=== PATIENT | female | born 1945 | race Caucasian/White ===

== ENCOUNTER 2021-08-02 03:20 | Observation (INO) | payer OTHER ==
[~2021-08-02] VITALS: Ht 162.6 cm; Wt 49.2 kg
[2021-08-02] VITALS (10 sets, daily range): BP systolic 104–147; BP diastolic 51–70
[2021-08-02 04:26] LABS: HEMATOCRIT 38.3 % (37.0-47.0); HEMOGLOBIN 11.8 g/dl (12.0-16.0); IMMATURE GRANULOCYTES 0.4 % (0.0-5.0); MEAN CELL VOLUME 103.2 fL CALC (80.0-100.0); MEAN CORPUSCULAR HGB 31.8 pG CALC (26.0-32.0); MEAN CORPUSCULAR HGB CONC 30.8 g/dL CAL (32.0-36.0); NEUT# 14.33 thou/uL (2.00-7.15); RED BLOOD COUNT 3.71 mill/uL (4.20-5.60); RED CELL DISTRI WIDTH 12.8 % (11.5-15.5)
[2021-08-02 04:29] LABS: ALBUMIN 4.3 g/dL (3.2-5.0); ALKALINE PHOSPHATASE 79 u/l (38-126); AMYLASE 49 u/l (30-110); ANION GAP 12 (6-22 (CALC)); BILIRUBIN, TOTAL 0.5 mg/dL (0.0-1.4); BUN 15 mg/dL (8-23); BUN/CREATININE RATIO 10 (12-20 (CALC)); CARBON DIOXIDE 26 mmol/l (22-30); CHLORIDE 101 mmol/l (95-108); CREATININE 1.5 mg/dL (0.5-1.0); GFR 34 ML/MIN (>=60 (CALC)); GFR FOR AFR.AMER. 41 ML/MIN (>=60 (CALC)); LIPASE 166 u/l (23-300); SGOT/AST 22 u/l (9-36); SODIUM 135 mmol/l (137-146)
[2021-08-02 04:41] LABS: MYOGLOBIN 80 ng/mL (0 - 62)
[2021-08-02 05:44] LABS: URINE BILIRUBIN - DIPSTICK NEGATIVE (NEGATIVE); URINE BLOOD DIPSTICK MODERATE (NEGATIVE); URINE COLOR YELLOW; URINE GLUCOSE - DIPSTICK NEGATIVE (NEGATIVE); URINE KETONE TRACE mg/dL (NEGATIVE); URINE PH 5.5 (4.5-8.0); URINE PROTEIN - DIPSTICK 100 mg/dL (NEG-TRACE); URINE UROBILINOGEN - DIPSTICK 0.2 E.U./dL (0.2)
[2021-08-02 05:53] LABS: URINE NITRITE - DIPSTICK NEGATIVE (Negative)
[2021-08-02 05:54] LABS: URINE EPITHELIAL CELLS MODERATE EPI/hpf (0-FEW); URINE LEUK ESTERASE NEGATIVE (NEGATIVE)
[2021-08-02 05:55] LABS: URINE BACTERIA MODERATE hpf
[2021-08-02] MEDS ORDERED: GLICLAZIDE (07:14)
[2021-08-02] MEDS ORDERED: AMLODIPINE BESYL5 MG PO (07:15)
[2021-08-02] MEDS ORDERED: RAMIPRIL2.5 MG PO (07:16)
[2021-08-02] MEDS ORDERED: PRILOSEC20 MG/CAP PO (07:16)
[2021-08-02] MEDS ORDERED: ROSUVASTATIN CA10 MG PO (07:17)
[2021-08-02] MEDS ORDERED: SYNTHROID25 MCG PO (07:17)
[2021-08-02] MEDS ORDERED: BISOPROL FUM5 MG PO (07:17)
[2021-08-02] MEDS ORDERED: ALTACE10 MG PO (13:05)
[2021-08-02] MEDS ORDERED: GLYCOPYRROLATE (13:08)
[2021-08-03 04:39] VITALS: BP 102/27
[2021-08-03 05:44] LABS: HEMATOCRIT 33.8 % (37.0-47.0); HEMOGLOBIN 10.2 g/dl (12.0-16.0); MEAN CORPUSCULAR HGB 32.3 pG CALC (26.0-32.0); MEAN CORPUSCULAR HGB CONC 30.2 g/dL CAL (32.0-36.0); RED BLOOD COUNT 3.16 mill/uL (4.20-5.60)
[2021-08-03 05:53] LABS: CREATININE 1.3 mg/dL (0.5-1.0); MAGNESIUM 1.6 mg/dL (1.6-2.3)
[2021-08-03 05:55] LABS: POTASSIUM 4.3 mmol/l (3.5-5.1)
[2021-08-03 07:20] VITALS: BP 99/45
[2021-08-03 09:16] VITALS: BP 102/42
[2021-08-03 11:40] VITALS: BP 107/48
[2021-08-04 00:24] VITALS: BP 117/43
[2021-08-04 05:16] LABS: HEMATOCRIT 31.6 % (37.0-47.0); HEMOGLOBIN 9.5 g/dl (12.0-16.0); IMMATURE GRANULOCYTES 1.1 % (0.0-5.0); MEAN CELL VOLUME 106.8 fL CALC (80.0-100.0); MEAN CORPUSCULAR HGB 32.1 pG CALC (26.0-32.0); MEAN CORPUSCULAR HGB CONC 30.1 g/dL CAL (32.0-36.0); NEUT# 10.35 thou/uL (2.00-7.15); RED BLOOD COUNT 2.96 mill/uL (4.20-5.60); RED CELL DISTRI WIDTH 12.8 % (11.5-15.5)
[2021-08-04 06:03] LABS: CREATININE 1.1 mg/dL (0.5-1.0); MAGNESIUM 1.8 mg/dL (1.6-2.3); POTASSIUM 4.3 mmol/l (3.5-5.1)
[2021-08-04 06:08] LABS: ALBUMIN 2.6 g/dL (3.2-5.0); BILIRUBIN, TOTAL 0.2 mg/dL (0.0-1.4)
[2021-08-04 09:43] VITALS: BP 121/51
[2021-08-04] MEDS ORDERED: ROBITUSSIN30 MG/5 ML PO (09:58)
[2021-08-04] MEDS ORDERED: DOXYCYCLINE100 MG PO (09:58)
[2021-08-04] MEDS ORDERED: AZITHROMYCIN500 MG PO (09:58)
== END 2021-08-04 13:56 | disposition home or self-care (01) | DRG 194 ==
LOC: ED 03:20 → ED-I 05:00 → ED 06:39 → MS2 06:40
PROVIDERS: Emergency Medicine; Nurse Practitioner; ADMIT Hospitalist; ATTEND Hospitalist
DX: J18.9 Pneumonia, unspecified organism (principal); J44.0 Chronic obstructive pulmonary disease with (acute) lower respiratory infection; J44.1 Chronic obstructive pulmonary disease with (acute) exacerbation; N17.9 Acute kidney failure, unspecified; R09.02 Hypoxemia; I11.0 Hypertensive heart disease with heart failure; I50.9 Heart failure, unspecified; K21.9 Gastro-esophageal reflux disease without esophagitis; E03.9 Hypothyroidism, unspecified; Z87.891 Personal history of nicotine dependence; Z20.822 Contact with and (suspected) exposure to COVID-19
CPT/HCPCS: G0378